=== PATIENT | female | born 1990 | race African-American/Black ===

== ENCOUNTER 2017-05-02 12:40 | Emergency (ER) | payer MEDICAID ==
[~2017-05-02] VITALS: Ht 170.2 cm; Wt 69.0 kg
[2017-05-02] MEDS ORDERED: KETOROLAC 60MG/2ML VIAL IM ONE (17:15)
[2017-05-02 17:17] LABS: CHLORIDE 106 mEq/L (98-107)
[2017-05-02 17:28] LABS: B-HCG QUANTITATIVE < 1 mIU/mL (<3)
[2017-05-02 18:38] LABS: CLARITY URINE CLEAR (CLEAR); COLOR URINE YELLOW (YELLOW); KETONES URINE 1+ (NEGATIVE); LEUKOCYTE ESTERASE URINE 1+ (NEGATIVE); NITRITE URINE NEGATIVE (NEGATIVE); OCCULT BLOOD URINE NEGATIVE (NEGATIVE); PROTEIN URINE NEGATIVE (NEGATIVE); SPECIFIC GRAVITY URINE 1.016 (1.005-1.030); UROBILINOGEN URINE 0.2 E.U./dL (0.2-1.0)
[2017-05-02 19:30] VITALS: BP 122/67
== END 2017-05-02 19:35 | disposition home or self-care (01) ==
LOC: ER 14:43
DX: K04.7 Periapical abscess without sinus (principal); F17.200 Nicotine dependence, unspecified, uncomplicated; Z98.890 Other specified postprocedural states
CPT/HCPCS: 36415; 80053; 81001; 81025; 84702; 96372; 99284; J1885; Z7610

== ENCOUNTER 2018-11-27 12:19 | Emergency (ER) | payer MEDICAID ==
[~2018-11-27] VITALS: Ht 170.2 cm; Wt 77.0 kg
[2018-11-27 14:40] VITALS: BP 117/70
== END 2018-11-27 14:50 | disposition home or self-care (01) ==
LOC: ER 12:19
DX: S00.83XA Contusion of other part of head, initial encounter (principal); F17.210 Nicotine dependence, cigarettes, uncomplicated; Z98.890 Other specified postprocedural states; W22.8XXA Striking against or struck by other objects, initial encounter; Y93.89 Activity, other specified; Y92.89 Other specified places as the place of occurrence of the external cause
CPT/HCPCS: 70486; 81025; 99284

== ENCOUNTER 2020-03-22 08:18 | Emergency (ER) | payer MEDICAID ==
[~2020-03-22] VITALS: Ht 165.1 cm; Wt 50.0 kg
[2020-03-22] MEDS ORDERED: KETOROLAC 60MG/2ML VIAL IM ONE (09:15)
[2020-03-22 10:14] VITALS: BP 118/70
== END 2020-03-22 10:17 | disposition home or self-care (01) ==
LOC: ER 08:18
DX: S40.011A Contusion of right shoulder, initial encounter (principal); G40.909 Epilepsy, unspecified, not intractable, without status epilepticus; Y09 Assault by unspecified means; Y93.89 Activity, other specified; Y92.89 Other specified places as the place of occurrence of the external cause
CPT/HCPCS: 71045; 73030; 93005; 96372; 99284; J1885; Z7610